=== PATIENT | female | born 1970 | race Caucasian/White ===

== ENCOUNTER 2017-07-10 21:35 | Emergency (ER) | payer BC ==
--- NOTE | 2017-07-10 23:03 | ULT ---
RIGHT LOWER EXTREMITY VENOUS DUPLEX STUDY: 07/10/17 Veins of the right lower extremity evaluated with color doppler with spectral analysis and compressio n. HISTORY: Right calf pain and edema. Elevated D-dimer. The veins of both the knee including common femoral, greater saphenous, superficial femoral, and popl iteal veins all show normal compression and blood flow. No evidence of DVT. Below the calf, there is evidence of thrombus and loss of blood flow in the peroneal veins in the mid to upper calf region. Posterior tibial vein below the knee shows normal flow with no thrombus. IMPRESSION: No evidence of deep vein thrombosis involving the veins to the popliteal on the right. Thrombus is id entified in the deep calf veins involving the peroneal vein in the mid to upper calf region. Recommen d conservative treatment and close followup to ensure no extension into the popliteal vein which woul d then qualify as deep vein thrombosis. POS: [facility]
[2017-07-10] MEDS ORDERED: Apixaban 5 MG TAB PO SCH (23:45)
--- NOTE | 2017-07-12 08:35 | ULT ---
RIGHT LOWER EXTREMITY VENOUS DUPLEX STUDY: 07/10/17 Veins of the right lower extremity evaluated with ultrasound and color doppler with spectral analysis and compression. INDICATIONS: Right calf pain and edema. The veins above the knee show normal blood flow and compression. The common femoral vein, femoral vei n, and popliteal veins show normal flow and compression. The greater saphenous vein shows normal flow and compression. Below the knee, the posterior tibial vein shows normal flow and compression. However, there is thromb us seen in the peroneal vein of the mid to upper calf region. IMPRESSION: No evidence of DVT to the level of the knee. There is thrombus in the deep calf veins involving peron eal veins in the mid to upper calf region. The findings were discussed with Dr. Polanco. POS: [facility]
== END 2017-07-11 00:22 | disposition home or self-care (01) ==
LOC: ERS 21:35
DX: I82.4Z1 Acute embolism and thrombosis of unspecified deep veins of right distal lower extremity (principal); E03.9 Hypothyroidism, unspecified; E78.5 Hyperlipidemia, unspecified; G43.909 Migraine, unspecified, not intractable, without status migrainosus; Z79.84 Long term (current) use of oral hypoglycemic drugs; Z79.899 Other long term (current) drug therapy

== ENCOUNTER 2018-12-20 10:55 | Emergency (ER) | payer BC ==
--- NOTE | 2018-12-20 12:04 | ULT ---
SOFT TISSUE NECK ULTRASOUND: HISTORY: Neck pain. Palpable area in the left neck. Tender to palpation. FINDINGS: Targeted sonographic imaging of the left neck demonstrates 3 separate lymph nodes. There is a 1.1 x 0 .9 x 0.6 cm lymph node with a preserved hilum and adjacent hypoechoic focus that may represent a lymph node that has an atypical configuration (round in appearance). There is a third lymph node kyle t is also similar in echotexture. Both of these lymph nodes are smaller and do not have a fatty hilum. IMPRESSION: Enlarged lymph nodes in the left neck, corresponding to region of concern. The fatty hilum of 2 of th e lymph nodes is not evident. Findings may be reactive, secondary to infectious or inflammatory process. After appropriate medical management, followup imaging should be performed. If fatty hilum i s still not appreciated, consider postcontrast soft tissue neck CT. Transcribed Date/Time: 12/20/2018 12:16 PM
== END 2018-12-20 12:35 | disposition home or self-care (01) ==
LOC: ERS 10:55
DX: L04.0 Acute lymphadenitis of face, head and neck (principal); E03.9 Hypothyroidism, unspecified; E78.2 Mixed hyperlipidemia; G43.909 Migraine, unspecified, not intractable, without status migrainosus; G47.30 Sleep apnea, unspecified; Z79.82 Long term (current) use of aspirin
CPT/HCPCS: 76536

== ENCOUNTER 2021-11-23 11:31 | Outpatient (CLI) | payer BC | END 2021-11-23 11:32 | disposition home or self-care (01) | LOC: DTY/OP 11:31 | PROVIDERS: ATTEND Surgery | DX: M54.50 Low back pain, unspecified (principal); G47.33 Obstructive sleep apnea (adult) (pediatric); E55.9 Vitamin D deficiency, unspecified; G89.29 Other chronic pain; Z68.41 Body mass index [BMI] 40.0-44.9, adult | CPT/HCPCS: 97802 ==

== ENCOUNTER 2021-12-28 11:32 | Outpatient (CLI) | payer BC | END 2021-12-28 11:33 | disposition home or self-care (01) | LOC: DTY/OP 11:32 | PROVIDERS: ATTEND Surgery | DX: E55.9 Vitamin D deficiency, unspecified (principal); M54.50 Low back pain, unspecified; G47.37 Central sleep apnea in conditions classified elsewhere; G89.29 Other chronic pain; Z68.41 Body mass index [BMI] 40.0-44.9, adult | CPT/HCPCS: 97802 ==

== ENCOUNTER 2022-01-25 11:35 | Outpatient (CLI) | payer BC | END 2022-01-25 11:36 | disposition home or self-care (01) | LOC: DTY/OP 11:35 | PROVIDERS: ATTEND Surgery | DX: E55.9 Vitamin D deficiency, unspecified (principal); G47.33 Obstructive sleep apnea (adult) (pediatric); M54.50 Low back pain, unspecified; G89.29 Other chronic pain; Z68.41 Body mass index [BMI] 40.0-44.9, adult | CPT/HCPCS: 97802 ==

== ENCOUNTER 2022-04-10 05:56 | Inpatient (IN) | payer BC ==
[2022-04-07 10:17] VITALS: BMI 41.7
[2022-04-10] MEDS ORDERED: Scopolamine 1.5 mg/72 hour Patch ONE (06:26)
[2022-04-10] MEDS ORDERED: Lidocaine 1% (PF) 30 ML VIAL ONE (06:43)
[2022-04-10] MEDS ORDERED: Bupivacaine HCl 0.5%/Epinephrine 1:200,000/PF 30 ml Vial ONE (06:43)
[2022-04-10] MEDS ORDERED: cefOXitin 2 GM in Sodium Chloride 0.9% 100 ML IVPB SCH (06:45)
[2022-04-10] MEDS ORDERED: Enoxaparin Sodium 40 MG/0.4 ML SYRINGE SC SCH (06:45)
[2022-04-10] MEDS ORDERED: fentaNYL PF 100 MCG/2 ML SYRINGE ONE ×2 (06:55→10:31)
[2022-04-10] MEDS ORDERED: Midazolam HCl 2 mg/2 ml Vial ONE ×2 (06:55→10:40)
[2022-04-10 07:09] LABS: SARS-CoV-2 NAA Rapid Test Not Detected (NotDetected)
[2022-04-10] MEDS ORDERED: Ondansetron PF 4 MG/2 ML Vial IVP PRN (07:29)
[2022-04-10] MEDS ORDERED: Promethazine HCl 25 MG/ML VIAL IM PRN (07:29)
[2022-04-10] MEDS ORDERED: hydrALAZINE 20 MG/ML VIAL SLOW IVP PRN (07:29)
[2022-04-10] MEDS ORDERED: Dextrose 5% in Water 1,000 ML IV PRN (07:29)
[2022-04-10] MEDS ORDERED: Dextrose 50% Abboject 50 ML SYRINGE SLOW IVP PRN (07:29)
[2022-04-10] MEDS ORDERED: diphenhydrAMINE 50 MG/ML VIAL IVP PRN (07:29)
[2022-04-10] MEDS ORDERED: Dexamethasone 20 MG/5 ML VIAL ONE (07:45)
[2022-04-10] MEDS ORDERED: PROPOFOL 200 MG/20 ML VIAL ONE (07:45)
[2022-04-10] MEDS ORDERED: GLYCOPYRROLATE/PF 0.2 MG/ML VIAL ONE (07:45)
[2022-04-10] MEDS ORDERED: NEOSTIGMINE 3 MG/3 ML SYR 3 MG/3 ML SYRINGE ONE (07:45)
[2022-04-10] MEDS ORDERED: Ondansetron PF 4 MG/2 ML Vial ONE (07:45)
[2022-04-10] MEDS ORDERED: Rocuronium Bromide 10 MG/ML (10ML VIAL) ONE (07:45)
[2022-04-10] MEDS ORDERED: HYDROmorphone 0.5 MG/0.5 ML SYRINGE ONE ×3 (09:47→10:05)
[2022-04-10] MEDS: Pantoprazole 40 MG VIAL IVP SCH (10:30)
[2022-04-10] MEDS ORDERED: Promethazine HCl 25 MG/ML VIAL ONE (10:41)
[2022-04-10] MEDS: Enoxaparin Sodium 40 MG/0.4 ML SYRINGE SC SCH (11:13)
[2022-04-10] MEDS: Ketorolac Tromethamine 30 MG/ML VIAL IVP SCH ×2 (11:38→17:04)
[2022-04-10] MEDS: D5 1/2 NS w/20 mEq KCL 1,000 ML IV SCH ×2 (11:38→17:03)
[2022-04-10] MEDS: Morphine 4 MG/ML VIAL SLOW IVP PRN ×2 (11:38→14:12)
[2022-04-10] MEDS ORDERED: FLU VACC QS2022-23(6MOS UP)/PF 60 MCG/0.5 ML SYRINGE IM ONE (12:30)
[2022-04-10] MEDS: Hydrocodone-Acetamin 15 ML UDCUP PO PRN ×2 (12:50→17:04)
[2022-04-11] MEDS: Ketorolac Tromethamine 30 MG/ML VIAL IVP SCH ×2 (00:23→08:40)
[2022-04-11] MEDS: D5 1/2 NS w/20 mEq KCL 1,000 ML IV SCH ×3 (00:24→08:41)
[2022-04-11 06:36] LABS: #Lymphocytes 1.1 thou/uL (1.20-3.40); #Neutrophils 7.5 thou/uL (1.40-6.50); %Basophils 0.2 % (0.0-1.0); %Eosinophils 0.1 % (0.0-10.0); %Lymphocytes 11.2 % (21.0-51.0); %Neutrophils 78.5 % (42.0-75.0); Hemoglobin 11.6 g/dL (12.0-16.0); Mean Corpuscular HGB CONC 31.7 g/dL (32.0-36.0); Mean Corpuscular Hemoglobin 29.4 pg (27.0-31.0); Mean Corpuscular Volume 92.7 fl (78.0-98.0); Mean Platelet Volume 8.4 fL (7.4-10.4); Platelet Count 254 10x3/uL (130-400); RBC Distribution Width 12.3 % (11.5-14.5); Red Blood Cell (RBC) Count 3.93 mill/uL (4.20-5.40); White Blood Cell (WBC) Count 9.5 10x3/uL (4.8-10.8)
[2022-04-11 06:53] LABS: Anion Gap 12 mmol/L (10-20); BUN (Urea Nitrogen) 6 mg/dL (7.0-18.7); Calc. Creatinine Clearance 131 mL/min (70-130); Carbon Dioxide 20 mmol/L (22-29); Chloride 106 mmol/L (98-107); Estimated GFR 85; Glucose 131 mg/dL (70-105); Potassium 4.1 mmol/L (3.5-5.1); Sodium 134 mmol/L (136-145)
[2022-04-11] MEDS: Hydrocodone-Acetamin 15 ML UDCUP PO PRN ×2 (08:42→12:26)
[2022-04-11] MEDS: Enoxaparin Sodium 40 MG/0.4 ML SYRINGE SC SCH (08:42)
[2022-04-11] MEDS: Pantoprazole 40 MG VIAL IVP SCH (08:43)
[2022-04-11 15:57] VITALS: BP 113/78; TEMP 97.8
== END 2022-04-11 15:40 | disposition home or self-care (01) | DRG 621 ==
LOC: SURG A 05:56
PROVIDERS: ADMIT Surgery; ATTEND Surgery
PROC: 0DB64Z3 Excision of Stomach, Percutaneous Endoscopic Approach, Vertical (ICD-10-PCS; principal; 2022-04-10)
PROC: 0BQT4ZZ Repair Diaphragm, Percutaneous Endoscopic Approach (ICD-10-PCS; 2022-04-10)
PROC: 8E0W4CZ Robotic Assisted Procedure of Trunk Region, Percutaneous Endoscopic Approach (ICD-10-PCS; 2022-04-10)
DX: E66.01 Morbid (severe) obesity due to excess calories (principal); Z68.41 Body mass index [BMI] 40.0-44.9, adult; Z20.822 Contact with and (suspected) exposure to COVID-19; G47.33 Obstructive sleep apnea (adult) (pediatric); K44.9 Diaphragmatic hernia without obstruction or gangrene; E78.2 Mixed hyperlipidemia; E55.9 Vitamin D deficiency, unspecified; E03.9 Hypothyroidism, unspecified; K21.9 Gastro-esophageal reflux disease without esophagitis; Z28.21 Immunization not carried out because of patient refusal; Z79.899 Other long term (current) drug therapy; Z79.890 Hormone replacement therapy
CPT/HCPCS: 36415; 80048; 85025; 88307; C9113; J1100; J1170; J1650; J1885; J2001; J2250; J2270; J2405; J2550; J2704; J3480; J3490; U0002